=== PATIENT | male | born 1995 | race Asian ===

== ENCOUNTER 2016-12-23 05:45 | Emergency (ER) | payer MEDICAID ==
[2016-12-23 05:52] VITALS: BP 157/84; PULSE 76; RESP 12; TEMP 97.2; O2SAT 96
--- NOTE | 2016-12-23 06:01 | EDPHY ---
H & P Stated Complaint: asthma worse this week with productive cough, sore throat Time Seen by Provider: 12/23/16 05:52 HPI/ROS: Chief Complaint: Cough, congestion HPI: 21-year-old male with a history of exercise-induced asthma presenting with 2 days of worsening upper respiratory symptoms with cough which is productive of occasional white sputum, subjective fevers and chills but has not taken his temperature at home. Having a little bit of wheezing. Has been using his albuterol inhaler but is not use a spacer. Also complaining of some sore throat and some nasal congestion. ROS: 10 point Review of Systems is negative except as noted in the HPI. PMH: Exercise-induced asthma Social History: No smoking, no alcohol, no recreational drug use Family History: non-contributory Physical Exam: Gen: Awake, Alert, No Distress HEENT: Nose: no rhinorrhea Eyes: PERRLA, EOMI Mouth: Moist mucosa, mild oral pharyngeal erythema without exudate or edema Neck: Supple, no JVD Chest: nontender, lungs clear to auscultation Heart: S1, S2 normal, no murmur Abd: Soft, non-tender, no guarding Back: no CVA tenderness, no midline tenderness Ext: no edema, non-tender Skin: no rash Neuro: CN II-XII intact, Sensation grossly intact, Strength 5/5 in bilateral upper and lower extremities - Personal History Current Tetanus/Diphtheria Vaccine: Yes Current Tetanus Diphtheria and Acellular Pertussis (TDAP): Yes Tetanus Vaccine Date: about 5 years - Medical/Surgical History Hx Asthma: Yes Hx Chronic Respiratory Disease: No Hx Diabetes: No Hx Cardiac Disease: No Hx Renal Disease: No Hx Cirrhosis: No Hx Alcoholism: No Hx HIV/AIDS: No Hx Splenectomy or Spleen Trauma: No Other PMH: asthma. no PSH - Social History Smoking Status: Never smoked Constitutional: Initial Vital Signs Temperature (C) 36.2 C 12/23/16 05:49 Heart Rate 76 12/23/16 05:49 Respiratory Rate 12 12/23/16 05:49 Blood Pressure 157/84 H 12/23/16 05:49 O2 Sat (%) 96 12/23/16 05:49 O2 Delivery Mode Room Air Allergies/Adverse Reactions: No Known Allergies Allergy (Unverified 12/23/16 05:48) Home Medications: Medication Instructions Recorded AMOXICILLIN 12/23/16 Kyleigh Allergy 12/23/16 Fluticasone Propionate [Flonase 9.9 ml NS DAILY #1 spray.susp 12/23/16 Allergy Relief] Proair Hfa 12/23/16 Medical Decision Making ED Course/Re-evaluation: 21-year-old male with a history of exercise-induced asthma presenting with symptoms consistent with the bronchitis. He is not wheezing here. He is not using a spacer with the here. Will give him an MDI spacer. He will continue uses inhaler as needed follow-up in 3 or 4 days if symptoms are not improving. Departure - Departure Disposition: Home, Routine, Self-Care Clinical Impression: Acute bronchitis Condition: Good Instructions: Acute Bronchitis (ED), How to Use a Metered-Dose Inhaler and a Spacer (ED) Additional Instructions: Follow up with her primary care doctor or at [facility] in 3-4 days if symptoms are not improving. Referrals: CAROLINA KINGSTON [Other] - As per Instructions Prescriptions: Fluticasone Propionate [Flonase Allergy Relief] 9.9 ml NS DAILY #1 spray.susp
== END 2016-12-23 06:29 | disposition home or self-care (01) ==
DX: J20.9 Acute bronchitis, unspecified (principal); J45.909 Unspecified asthma, uncomplicated

== ENCOUNTER 2016-12-26 04:46 | Emergency (ER) | payer MEDICAID ==
[2016-12-26] MEDS ORDERED: IPRATROPIUM/ALBUTEROL 3 ML DEYVIAL IH ONE (05:04)
[2016-12-26] MEDS ORDERED: IPRATROPIUM/ALBUTEROL 3 ML DEYVIAL ONE (05:05)
--- NOTE | 2016-12-26 05:08 | EDPHY ---
H & P Stated Complaint: COUGHING UP GREEN X1 WK, ASTHMA Time Seen by Provider: 12/26/16 04:58 HPI/ROS: HPI The patient presents with cough for the last 1 week which is worse at night, occasionally productive of green sputum, moderate in severity. It is associated with epistaxis and greenish rhinorrhea. His throat feels itchy at times. He does not have a fever. He denies any sick contacts. He has been using albuterol inhaler with AeroChamber, Kyleigh, steroid nasal spray, ibuprofen and Sudafed. His symptoms persist. He is not able to get sleep because of this. He does not have any chest pain. Review of records reveals that he was in the emergency room 3 days ago for this same cough. He was given albuterol with AeroChamber and discharge. He also says that he has a history of similar cough that lasted for about 1 month and improved on its own. REVIEW OF SYSTEMS Constitutional: No fever, no chills. Eyes: No discharge. ENT: No sore throat. Cardiovascular: No chest pain, no palpitations. Respiratory: Positive for cough, no shortness of breath. Gastrointestinal: No abdominal pain, no vomiting. Genitourinary: No hematuria. Musculoskeletal: No back pain. Skin: No rashes. Neurological: No headache. PMHx: Exercise-induced asthma PHYSICAL General Appearance: Alert, no distress Eyes: Pupils equal and round no pallor or injection ENT, Mouth: Mucous membranes moist Respiratory: There are no retractions, lungs are clear to auscultation Cardiovascular: Regular rate and rhythm Gastrointestinal: Abdomen is soft and non-tender, no masses, bowel sounds normal Neurological: A&O, moves all extremities Skin: Warm and dry, no rashes Musculoskeletal: Neck is supple non tender Extremities: symmetrical, full range of motion Psychiatric: Patient is oriented X 3, there is no agitation Source: Patient Exam Limitations: No limitations - Personal History Current Tetanus/Diphtheria Vaccine: Yes Current Tetanus Diphtheria and Acellular Pertussis (TDAP): Yes Tetanus Vaccine Date: about 5 years - Medical/Surgical History Hx Asthma: Yes Hx Chronic Respiratory Disease: No Hx Diabetes: No Hx Cardiac Disease: No Hx Renal Disease: No Hx Cirrhosis: No Hx Alcoholism: No Hx HIV/AIDS: No Hx Splenectomy or Spleen Trauma: No Other PMH: asthma. no PSH - Social History Smoking Status: Never smoked Constitutional: Initial Vital Signs Temperature (C) 36.8 C 12/26/16 04:49 Heart Rate 98 12/26/16 04:49 Respiratory Rate 18 12/26/16 04:49 Blood Pressure 128/77 H 12/26/16 04:49 O2 Sat (%) 98 12/26/16 04:49 O2 Delivery Mode Room Air Allergies/Adverse Reactions: No Known Allergies Allergy (Unverified 12/26/16 04:51) Home Medications: Medication Instructions Recorded AMOXICILLIN 12/23/16 Kyleigh Allergy 12/23/16 Fluticasone Propionate [Flonase 9.9 ml NS DAILY #1 spray.susp 12/23/16 Allergy Relief] Proair Hfa 12/23/16 Guaifenesin/Codeine Phos [Codeine 5 ml PO BID PRN #118 liquid 12/26/16 10 mg-Guai 300 mg Liq] Medical Decision Making - Diagnostics Imaging Results: Chest x-ray two view shows no infiltrate, no cardiomegaly, interpreted by me, radiology interpretation is pending. Differential Diagnosis: This is a 21-year-old male with history of exercise induced asthma who presents for cough for the last 1 week. He was seen earlier in the week and diagnosed with bronchitis, started on albuterol with AeroChamber. He is not improving take co so comes to the ER for further care. Differential diagnosis includes cough variant asthma, bronchitis, pneumonia, less likely influenza. In the emergency room, chest x-ray was performed which showed no pneumonia. The patient was given a DuoNeb without much improvement in his symptoms. I feel he is suffering from a viral upper respiratory tract infection versus allergic rhinitis and I have explained this to him. He is currently on appropriate medical treatment with nasal steroid, antihistamine, albuterol, decongestant. Because he is having difficulty sleeping and it is impacting his ability to rest, I will give him a short course of Robitussin with codeine to take before bed for the next few days until his cough abates. I have discussed return precautions. - Data Points Medications Given: Discontinued Medications Albuterol/Ipratropium (Duoneb) 3 ml IH EDNOW ONE Stop: 12/26/16 05:05 Last Admin: 12/26/16 05:15 Dose: 3 ml Departure - Departure Disposition: Home, Routine, Self-Care Clinical Impression: Cough Condition: Good Instructions: Chronic Cough (ED) Additional Instructions: Please return if your worse in any way. Otherwise follow up with your doctor in 1 week if the cough continues. Referrals: CAROLINA KINGSTON [Other] - As per Instructions Stand Alone Forms: School Excuse Prescriptions: Guaifenesin/Codeine Phos [Codeine 10 mg-Guai 300 mg Liq] 5 ml PO BID PRN #118 liquid PRN Reason: Cough, Moderate
[2016-12-26 06:01] VITALS: BP 103/88; PULSE 101; RESP 16; TEMP 97.9; O2SAT 95
== END 2016-12-26 06:01 | disposition home or self-care (01) ==
DX: R05 Cough (principal); J45.909 Unspecified asthma, uncomplicated

== ENCOUNTER 2017-05-11 04:31 | Emergency (ER) | payer MEDICAID ==
[2017-05-11 04:38] VITALS: RESP 16; TEMP 97.5; O2SAT 97
--- NOTE | 2017-05-11 04:42 | EDPHY ---
H & P Stated Complaint: etoh, vomiting blood HPI/ROS: HPI CHIEF COMPLAINT: Alcohol intoxication, nausea vomiting HISTORY OF PRESENT ILLNESS: This patient 21-year-old male otherwise healthy no significant medical history does not take any daily medications he presents emergency room by private vehicle after he states he drank 12-14 shots of liquor this evening. He stopped drinking around 2:00 a.m.. He then had 2 episodes of vomiting. He states it was dark in nature. He drank yaegermeister and titos vodka started this evening. He states on the 2nd episode of vomiting he saw a slight pink tinge of blood in his vomit. He denies any abdominal pain chest pain or shortness of breath. He still has nausea. And hiccups. Past Medical History: No medical history Past Surgical History: No surgical history Social History: [employer] student. Family History: Noncontributory ROS REVIEW OF SYSTEMS: A comprehensive 10 point review of systems is otherwise negative aside from elements mentioned in the history of present illness. Exam Constitutional appears well nontoxic, smells of alcohol, triage nursing summary reviewed, vital signs reviewed, awake/alert. Eyes normal conjunctivae and sclera, EOMI, PERRLA. HENT normal inspection, atraumatic, moist mucus membranes, no epistaxis, neck supple/ no meningismus, no raccoon eyes. Respiratory clear to auscultation bilaterally, normal breath sounds, no respiratory distress, no wheezing. Cardiovascular rate normal, regular rhythm, no murmur, no edema, distal pulses normal. Gastrointestinal soft, non-tender, no rebound, no guarding, normal bowel sounds, no distension, no pulsatile mass. Genitourinary no CVA tenderness. Musculoskeletal no midline vertebral tenderness, full range of motion, no calf swelling, no tenderness of extremities, no meningismus, good pulses, neurovascularly intact. Skin pink, warm, & dry, no rash, skin atraumatic. Neurologic awake, alert and oriented x 3, AAOx3, moves all 4 extremities equally, motor intact, sensory intact, CN II-XII intact, normal cerebellar, normal vision, normal speech. Psychiatric normal mood/affect. Heme/Lymph/Immune no lymphadenopathy. Differential Diagnosis: Includes but is not limited to in a particular order acute alcohol intoxication, dehydration, alcohol-induced gastritis, Lona- Minaya tear, doubt significant acute GI bleed Medical Decision Making: Plan for this patient p.o. Zofran, Zantac, breath alcohol re-evaluate. Re-evaluation: Breath alcohol was 0.87. [id number] Source: Patient - Personal History Current Tetanus/Diphtheria Vaccine: Yes Current Tetanus Diphtheria and Acellular Pertussis (TDAP): Yes Tetanus Vaccine Date: about 5 years - Medical/Surgical History Hx Asthma: Yes Hx Chronic Respiratory Disease: No Hx Diabetes: No Hx Cardiac Disease: No Hx Renal Disease: No Hx Cirrhosis: No Hx Alcoholism: No Hx HIV/AIDS: No Hx Splenectomy or Spleen Trauma: No Other PMH: asthma. no PSH - Social History Smoking Status: Never smoked Constitutional: Initial Vital Signs Temperature (C) 36.4 C 05/11/17 04:37 Heart Rate 104 H 05/11/17 04:37 Respiratory Rate 16 05/11/17 04:37 Blood Pressure 122/77 H 05/11/17 04:37 O2 Sat (%) 97 05/11/17 04:37 O2 Delivery Mode Room Air Allergies/Adverse Reactions: No Known Allergies Allergy (Unverified 05/11/17 04:35) Home Medications: Medication Instructions Recorded AMOXICILLIN 12/23/16 Kyleigh Allergy 12/23/16 Proair Hfa 12/23/16 Epiduo 0.1-2.5% Gel Pump 05/11/17 Ranitidine HCl [Zantac] 150 mg PO DAILY #14 tablet 05/11/17 Medical Decision Making - Data Points Medications Given: Discontinued Medications Ondansetron HCl (Zofran Odt) 4 mg PO EDNOW ONE Stop: 05/11/17 04:46 Last Admin: 05/11/17 04:51 Dose: 4 mg Departure - Departure Disposition: Home, Routine, Self-Care Clinical Impression: Alcoholic intoxication Qualifiers: Complication of substance-induced condition: uncomplicated Qualified Code(s): F10.920 - Alcohol use, unspecified with intoxication, uncomplicated Condition: Good Instructions: Alcohol Intoxication (ED) Additional Instructions: 1.Return emergency room if develops worsening symptoms questions or concerns includes worsening vomiting blood in her vomit. 2. Take it easy for the next 2 weeks. No alcohol. 3. Zantac for 2 weeks. Referrals: NONE *PRIMARY CARE P,. [Primary Care Provider] - As per Instructions Prescriptions: Ranitidine HCl [Zantac] 150 mg PO DAILY #14 tablet
[2017-05-11] MEDS ORDERED: ONDANSETRON DISINTEGRATING 4 MG TAB PO ONE (04:45)
[2017-05-11] MEDS ORDERED: RANITIDINE SYRUP 15 MG/1 ML UDSYR PO SCH (04:45)
[2017-05-11 06:06] VITALS: BP 127/75; PULSE 97
== END 2017-05-11 06:05 | disposition home or self-care (01) ==
DX: F10.920 Alcohol use, unspecified with intoxication, uncomplicated (principal); J45.909 Unspecified asthma, uncomplicated

== ENCOUNTER 2018-11-24 18:43 | Emergency (ER) | payer MEDICAID ==
[2018-11-24 20:04] VITALS: BP 122/78
--- NOTE | 2018-11-24 20:25 | EDPHY ---
H & P Time Seen by Provider: 11/24/18 19:01 HPI/ROS: HPI Ankle injury. 22-year-old male by private vehicle. He is a student [employer]. He was working out with weights. He had a support bar from a squat rack fall and strike him on the dorsum of his right ankle. He complains of isolated pain and a skin abrasion to this area. He is able to bear weight on it. He denies any other injury or complaint. ROS: Constitutional: No fever, no chills. No weakness. Musculoskeletal: As above. No other extremity pain. Skin: No rashes. As above. Neurological: No focal weakness or altered sensation. Past medical history: Asthma. Seasonal allergies. Social history: Nonsmoker. Student [employer]. Here with his girlfriend. Physical Exam: General Appearance: Alert, no distress. This patient is responding to questions appropriately and in full sentences. This patient appears well- hydrated and well-nourished. Eyes: Pupils equal and round no pallor or injection. No lid edema, erythema or injection. Right foot and ankle exam: He has a superficial abrasion to the dorsum of the mid ankle. There is no suturable laceration. He has some mild associated swelling to this area. No bony step-off or deformity noted on palpation. The right foot is otherwise nontender on palpation of the bony areas and axial loading of all the digits. He has no tenderness on palpation over the bilateral malleoli. The proximal fibula is nontender on palpation. Right foot is neurovascularly intact. He does have some discomfort with active and passive plantar flexion and dorsiflexion of the right foot. Neurological: Motor sensory function is grossly intact. Cranial nerves are normal. Skin: Warm and dry, no rashes. As above. Musculoskeletal: Neck is supple and nontender. Extremities are symmetrical. All joints range without pain or impingement except noted. Psychiatric: No agitation. No depression. Database: EKG: Imaging: Right ankle x-ray series: Soft tissue swelling of the dorsal mid ankle. No fracture, subluxation, dislocation. Interpreted by me. Procedures: Emergency department course: Triage vital signs reviewed and are normal. Patient was given 600 mg of ibuprofen in the emergency department. Results of his x-rays were discussed with him. His superficial abrasion was appropriately cleansed and dressed. He has a low fitting shoe without exposure of material on the wound area. He feels comfortable wearing this. I recommended weight-bearing as tolerated. I discussed ibuprofen dosing for pain management. Wound management was discussed. Follow-up return to emergency department precautions reviewed. All of his questions were answered. He was discharged from the emergency department in good condition. Differential Diagnosis: The differential diagnosis on this patient includes but is not limited to right ankle contusion, right ankle abrasion. Fracture, subluxation, dislocation of the right ankle unlikely. This represents a partial list of diagnoses considered. These considerations are based on history, physical exam, past history, reassessment and diagnostic testing. Smoking Status: Never smoked Constitutional: Initial Vital Signs Temperature (C) 37 C 11/24/18 18:51 Heart Rate 80 11/24/18 18:51 Respiratory Rate 16 11/24/18 18:51 Blood Pressure 130/80 H 11/24/18 18:51 O2 Sat (%) 99 11/24/18 18:51 O2 Delivery Mode Room Air Allergies/Adverse Reactions: No Known Allergies Allergy (Unverified 05/11/17 04:35) Home Medications: Medication Instructions Recorded AMOXICILLIN 12/23/16 Zyrtec 11/24/18 Medical Decision Making - Diagnostics Imaging Results: Imaging Impressions Ankle X-Ray 11/24/18 18:54 Impression: Dorsal soft tissue swelling, with no acute osseous abnormality. Departure - Departure Disposition: Home, Routine, Self-Care Clinical Impression: Right ankle injury, Abrasion of ankle Condition: Good Instructions: Contusion in Adults (ED), Abrasion (ED) Additional Instructions: Read and follow provided instructions. Follow-up with your primary care physician in 1-2 days for re-evaluation. This could be done at the [facility]. Weightbear as tolerated on her right foot and ankle. Avoid any activity which exacerbates pain. Ibuprofen dosin mg every 6 hours with meals for the next 3 days only. Take only as needed for pain. Return to the emergency department for worsening pain, swelling, discoloration or other serious concerns. Referrals: NONE *PRIMARY CARE P,. [Primary Care Provider] - As per Instructions [facility] [Clinic] - As per Instructions
== END 2018-11-24 20:39 | disposition home or self-care (01) ==
DX: S90.511A Abrasion, right ankle, initial encounter (principal); W20.8XXA Other cause of strike by thrown, projected or falling object, initial encounter; Y93.B9 Activity, other involving muscle strengthening exercises; Y92.9 Unspecified place or not applicable; Y99.9 Unspecified external cause status